=== PATIENT | male | born 1965 | race Hispanic/Latino ===

== ENCOUNTER 2018-09-12 08:13 | Observation (INO) | payer BC ==
[2018-09-12 08:27] VITALS: BMI 34.8
[2018-09-12 08:54] LABS: BASO % 0.6 % (0.0-2.0); EOS # 0.1 K/uL (0.0-0.7); EOS % 1.1 % (0.0-4.0); HEMOGLOBIN 16.6 g/dL (12.0-18.0); LYMPH # 1.3 K/uL (1.0-4.3); LYMPH % 19.3 % (20.0-40.0); MEAN CELL VOLUME 84.9 fL (80.0-94.0); MEAN CORPUSCULAR HEMOGLOBIN 29.5 pg (27.0-31.0); MEAN CORPUSCULAR HGB CONC 34.7 g/dL (33.0-37.0); MEAN PLATELET VOLUME 7.6 fL (7.2-11.7); MONO # 0.5 K/uL (0.0-0.8); MONO % 7.8 % (0.0-10.0); NEUT # 4.9 K/uL (1.8-7.0); NEUT % 71.2 % (50.0-75.0); RBC 5.63 Mil/uL (4.40-5.90); RED CELL DISTRIBUTION WIDTH 13.5 % (11.5-14.5); WHITE BLOOD COUNT 6.8 K/uL (4.8-10.8)
--- NOTE | 2018-09-12 09:12 | C.PDOC ---
History Of Present Illness 52 y/o male with a PMHx of hypercholesterolemia (on Lipitor), presents to the ED today complaining of substernal chest pain, non-radiating, that began this morning. He denies any associated SOB or cold sweats. Patient reports pain is pressure-like in nature. No associated headache, dizziness, nausea, vomiting, abdominal pain, or other complaints. Patient denies exertion. 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 As per EMS, they did an EKG in the field that showed no ST changes. Patient was given nitroglycerin x1 and 324 mg PO aspirin. On arrival patient states the pain is gone. No fevers or chills. Time Seen by Provider: 09/12/18 08:26 Chief Complaint (Nursing): Chest Pain History Per: Patient History/Exam Limitations: no limitations Onset/Duration Of Symptoms: Hrs Current Symptoms Are (Timing): Still Present Quality: Pressure Associated Symptoms: denies: Dyspnea Nitro Therapy Administered: 1, Per EMS, Complete Relief Additional History Per: Prior Records Past Medical History Reviewed: Historical Data, Nursing Documentation, Vital Signs Vital Signs: Last Vital Signs Temp 97.7 F 09/12/18 08:15 Pulse 92 H 09/12/18 08:20 Resp 16 09/12/18 08:15 BP 145/83 09/12/18 08:20 Pulse Ox 95 09/12/18 08:15 - Medical History PMH: Hypercholesterolemia - [facility] Procedures PRESSURE DRESSING APPLIC (02/10/13) Family History: States: No Known Family Hx - Social History Hx Alcohol Use: Yes Hx Substance Use: No - Immunization History Hx Tetanus Toxoid Vaccination: No Hx Influenza Vaccination: Yes Hx Pneumococcal Vaccination: No Review Of Systems Except As Marked, All Systems Reviewed And Found Negative. Constitutional: Negative for: Fever, Chills, Sweats Eyes: Negative for: Vision Change Cardiovascular: Positive for: Chest Pain. Negative for: Light Headedness Respiratory: Negative for: Cough, Shortness of Breath, SOB with Excertion Gastrointestinal: Negative for: Nausea, Vomiting, Abdominal Pain Musculoskeletal: Negative for: Back Pain Skin: Negative for: Rash, Lesions Neurological: Negative for: Weakness, Numbness, Headache, Dizziness Physical Exam - Physical Exam Appears: Non-toxic, No Acute Distress Skin: Warm, Dry, Other (Appears flushed) Head: Atraumatic, Normacephalic Eye(s): bilateral: PERRL, EOMI, Other (mild conjunctival injection) Oral Mucosa: Moist Neck: Normal ROM Chest: Symmetrical Cardiovascular: Rhythm Regular, No Murmur Respiratory: Normal Breath Sounds, No Rales, No Rhonchi, No Wheezing Gastrointestinal/Abdominal: Soft (and obese), No Tenderness, No Guarding, No Rebound Extremity: Normal ROM, No Deformity, Swelling (+1 pitting edema to the lower extremities) Pulses: Left Radial: Normal, Right Radial: Normal Neurological/Psych: Oriented x3, Normal Speech, Normal Cranial Nerves ED Course And Treatment - Laboratory Results Result Diagrams: 09/12/18 08:45 09/12/18 08:45 ECG: Interpreted By Me, Viewed By Me ECG Rhythm: Sinus Rhythm Interpretation Of ECG: no ST elevations or depressions Rate From EC O2 Sat by Pulse Oximetry: 95 (NC) Pulse Ox Interpretation: Normal - Other Rad CXR X-Ray: Read By Radiologist Interpretation: Accession No. : [id number]. Patient Name / ID : ALPHONSO MOBLEY / [id number]. Exam Date : 09/12/2018 08:31:26 ( Approved ). Study Comment : Sex / Age : M / 52Y. Creator : kumar altman. Dictator : Chad Gonzales MD. Corporate Officer : Front Desk Clerk : Chad Gonzales MD. Approver2 : Report Date : 09/12/2018 08:48:11. My Comment : . Date of service: 09/12/2018. HISTORY: r/o infiltrates. COMPARISON: No prior. TECHNIQUE: Chest PA and lateral. FINDINGS: LUNGS: No active pulmonary disease. PLEURA: No significant pleural effusion identified. No pneumothorax apparent. CARDIOVASCULAR: No aortic atherosclerotic calcification present. Normal cardiac size. OSSEOUS STRUCTURES: No significant abnormalities. VISUALIZED UPPER ABDOMEN: Normal. OTHER FINDINGS: None. IMPRESSION: No active disease. Medical Decision Making Medical Decision Making: Impression: Chest Pain Differential diagnosis includes but is not limited to: Gastritis vs NSTEMI Repeat EKG here shows no acute ST changes. Plan: - Repeat EKG - Labs with cardiac enzymes - Chest x-ray CXR shows no acute disease. 9:30 Patient's repeat EKG again shows no ST elevations. Troponin is negative. Will hospitalize under telemetry for chest pain work up, given clinical presentation. Spoke with Dr. Sevilla who accepts patient for admission. Requests cardiology consult with Dr. Gomez. Paged Dr. Gomez, notified of consult. Disposition Discussed With : Nasir Sevilla - Disposition Disposition: HOSPITALIZED Disposition Time: 09:34 Condition: GUARDED - Clinical Impression Clinical Impression: Chest pain - Scribe Statement The provider has reviewed the documentation as recorded by the Scribe Elva Fried Provider Attestation: All medical record entries made by the Karenibe were at my direction and personally dictated by me. I have reviewed the chart and agree that the record accurately reflects my personal performance of the history, physical exam, m edical decision making, and the department course for this patient. I have also personally directed, reviewed, and agree with the discharge instructions and disposition. Decision To Admit - Pt Status Changed To: Hospital Disposition Of: Observation - . Bed Request Type: Telemetry Admitting Physician: Ritu Pollard Patient Diagnosis: Chest pain
[2018-09-12 09:16] LABS: ALB/GLOB RATIO 1.9 (1.0-2.1); ALBUMIN 4.5 g/dL (3.5-5.0); ALT/SGPT 48 U/L (21-72); AST/SGOT 44 U/L (17-59); BLOOD UREA NITROGEN 19 mg/dL (9-20); CALCIUM 9.4 mg/dl (8.6-10.4); GFR NON-AFRICAN AMERICAN > 60
--- NOTE | 2018-09-12 10:23 | RAD ---
Date of service: 09/12/2018 HISTORY: r/o infiltrates COMPARISON: No prior. TECHNIQUE: Chest PA and lateral FINDINGS: LUNGS: No active pulmonary disease. PLEURA: No significant pleural effusion identified. No pneumothorax apparent. CARDIOVASCULAR: No aortic atherosclerotic calcification present. Normal cardiac size. OSSEOUS STRUCTURES: No significant abnormalities. VISUALIZED UPPER ABDOMEN: Normal. OTHER FINDINGS: None. IMPRESSION: No active disease.
[2018-09-12 11:13] LABS: BARBITURATES, UR NEGATIVE (NEGATIVE); BENZODIAZEPINES, UR NEGATIVE (NEGATIVE); OPIATES, UR NEGATIVE (NEGATIVE); PHENCYCLIDINE, UR NEGATIVE (NEGATIVE)
[2018-09-12 15:04] LABS: HDL CHOLESTEROL 35 mg/dL (30-70)
[2018-09-12 15:15] LABS: LDL CHOLESTEROL 81 mg/dL (0-129)
--- NOTE | 2018-09-12 15:59 | US ---
Date of service: 09/12/2018 HISTORY: r/o cholelithiasis COMPARISON: None available. TECHNIQUE: Sonographic evaluation of the right upper quadrant of the abdomen. FINDINGS: LIVER: Measures 17.4 cm in length. Echogenic liver may be seen in setting of hepatic parenchymal disease or fatty infiltration. No focal hepatic mass identified. The main portal vein appears patent with normal directional flow. No intrahepatic bile duct dilatation. GALLBLADDER: Contracted state limits evaluation. Cholelithiasis. Gallbladder wall thickening measuring approximately 4 mm. Negative sonographic Johnson's sign as assessed by the medical grade shoemaker. COMMON BILE DUCT: Measures 5 mm. PANCREAS: Not well-visualized. RIGHT KIDNEY: Measures approximately 11.9 x 6.3 x 5.7 cm. No obstructing calculus or hydronephrosis identified. AORTA: Limited visualization appears grossly unremarkable. IVC: Not well-visualized. OTHER FINDINGS: None . IMPRESSION: Echogenic liver may be seen in setting of hepatic parenchymal disease or fatty infiltration. Contracted state of gallbladder limits evaluation. Cholelithiasis. Gallbladder wall thickening measuring approximately 4 mm. Negative sonographic Johnson's sign as assessed by the medical grade shoemaker.
[2018-09-12 18:33] LABS: INR 1.3
[2018-09-12 22:25] LABS: CK-MB 0.69 ng/mL (0.0-3.38)
--- NOTE | 2018-09-12 23:24 | CP.PCM.CON ---
History of Present Illness - History of Present Illness History of Present Illness: 52 M with hx hyperlipdemia, HTN, Fhx admiited with ubstable angina scheduled for cath in am Past Patient History - Infectious Disease Hx of Infectious Diseases: None - Past Social History Smoking Status: Never Smoked - CARDIAC Hx Hypercholesterolemia: Yes - PSYCHIATRIC Hx Substance Use: No Meds Allergies/Adverse Reactions: Allergies Allergy/AdvReac Type Severity Reaction Status Date / Time No Known Allergies Allergy Verified 09/12/18 08:27 - Medications Medications: Current Medications Aspirin (Aspirin Chewable) 81 mg PO DAILY [facility] Last Admin: 09/12/18 18:03 Dose: 81 mg Enoxaparin Sodium (Lovenox) 40 mg SC DAILY [facility] Pneumococcal Polyvalent Vaccine (Pneumovax 23 Vaccine) 0.5 ml IM .ONCE ONE Stop: 09/13/18 10:01 Rosuvastatin Calcium (Crestor) 10 mg PO HS [facility] Last Admin: 09/12/18 21:26 Dose: 10 mg Results - Vital Signs Recent Vital Signs: Last Vital Signs Temp 98.2 F 09/12/18 15:50 Pulse 93 H 09/12/18 16:31 Resp 20 09/12/18 15:50 BP 129/84 09/12/18 15:50 Pulse Ox 94 L 09/12/18 15:50 - Labs Result Diagrams: 09/12/18 08:45 09/12/18 08:45 Labs: Laboratory Results - last 24 hr 09/12/18 09/12/18 09/12/18 08:45 08:45 10:45 WBC 6.8 RBC 5.63 Hgb 16.6 Hct 47.8 MCV 84.9 MCH 29.5 MCHC 34.7 RDW 13.5 Plt Count 210 MPV 7.6 Neut % (Auto) 71.2 Lymph % (Auto) 19.3 L [place] % (Auto) 7.8 Eos % (Auto) 1.1 Baso % (Auto) 0.6 Neut # (Auto) 4.9 Lymph # (Auto) 1.3 [place] # (Auto) 0.5 Eos # (Auto) 0.1 Baso # (Auto) 0.0 PT INR Sodium 139 Potassium 3.7 Chloride 102 Carbon Dioxide 26 Anion Gap 14 BUN 19 Creatinine 1.1 Est GFR ( Amer) > 60 Est GFR (Non-Af Amer) > 60 Random Glucose 148 H Calcium 9.4 Total Bilirubin 0.7 AST 44 ALT 48 Alkaline Phosphatase 107 Total Creatine Kinase CK-MB (Mass) Troponin I < 0.0120 Total Protein 6.9 Albumin 4.5 Globulin 2.4 Albumin/Globulin Ratio 1.9 Triglycerides Cholesterol LDL Cholesterol Direct HDL Cholesterol Urine Opiates Screen Negative Urine Methadone Screen Negative Ur Barbiturates Screen Negative Ur Phencyclidine Scrn Negative Ur Amphetamines Screen Negative U Benzodiazepines Scrn Negative U Oth Cocaine Metabols Negative U Cannabinoids Screen Negative 09/12/18 09/12/18 09/12/18 14:46 18:10 21:52 WBC RBC Hgb Hct MCV MCH MCHC RDW Plt Count MPV Neut % (Auto) Lymph % (Auto) [place] % (Auto) Eos % (Auto) Baso % (Auto) Neut # (Auto) Lymph # (Auto) [place] # (Auto) Eos # (Auto) Baso # (Auto) PT 14.0 H INR 1.3 Sodium Potassium Chloride Carbon Dioxide Anion Gap BUN Creatinine Est GFR ( Amer) Est GFR (Non-Af Amer) Random Glucose Calcium Total Bilirubin AST ALT Alkaline Phosphatase Total Creatine Kinase 79 CK-MB (Mass) 0.69 Troponin I < 0.0120 < 0.0120 Total Protein Albumin Globulin Albumin/Globulin Ratio Triglycerides 162 H Cholesterol 134 LDL Cholesterol Direct 81 HDL Cholesterol 35 Urine Opiates Screen Urine Methadone Screen Ur Barbiturates Screen Ur Phencyclidine Scrn Ur Amphetamines Screen U Benzodiazepines Scrn U Oth Cocaine Metabols U Cannabinoids Screen
--- NOTE | 2018-09-13 02:27 | HP ---
HISTORY OF PRESENT ILLNESS: This is a 52-year-old male with no significant past medical history except for hypercholesterolemia, presented to emergency room with pressure-like lower sternal chest pain while he was sitting in the car after eating a tuna sandwich on the day of admission. The patient drove himself to an ambulance and was brought by paramedics. The patient was given nitroglycerin and chewable aspirin, and he was chest pain free by the time he arrived to the emergency room. EKG did not show any acute ischemic changes, and initial troponin was negative. The patient admits that he has two brothers with strong coronary artery disease history, status post CABG at the age of during her 50s. Other review of system is positive for shortness of breath during the time the patient had chest pain. ALLERGIES: NO KNOWN ALLERGIES. MEDICATIONS: Atorvastatin 20 mg once a day. SOCIAL HISTORY: Denied smoking, EtOH or substance abuse. FAMILY HISTORY: As above. PAST MEDICAL HISTORY: Hypercholesterolemia. The patient stated that he had a stress test done and a regular checkup about 6 months ago, and he was told that it was normal. PHYSICAL EXAMINATION: GENERAL: The patient is in bed without any cardiopulmonary distress. VITAL SIGNS: Blood pressure 105/63, temperature 97.7, respiratory rate 18, and pulse 86. HEENT: Pupils are equal and reactive to light. Normal-appearing mucosa of the conjunctivae, oropharynx and nasal membrane mucosa. NECK: Supple. No JVD. No carotid bruit. No lymph node. No thyromegaly. CHEST AND LUNGS: Bilateral symmetrical expansion. Good air exchange. No rales. No rhonchi. CARDIOVASCULAR SYSTEM: PMI not localized. S1 and S2. No additional sounds. ABDOMEN: Normoactive bowel sounds. No tenderness. No organomegaly. No masses. EXTREMITIES: No cyanosis, no clubbing, no edema. CENTRAL NERVOUS SYSTEM: Alert, awake, oriented x3. No neurological deficit could be appreciated. ASSESSMENT: 1. Chest pain, rule out acute coronary syndrome. 2. Hypercholesterolemia. PLAN: Continue cardiac enzymes every 8 hours. Serial EKGs. Continue aspirin and statin. Cardiology consult. Echocardiogram. Ritu Pollard MD [facility] # [id number]
[2018-09-13 06:51] VITALS: RESP 20
[2018-09-13] MEDS ORDERED: Midazolam 2 MG/2 ML VIAL ONE (07:13)
[2018-09-13] MEDS ORDERED: Verapamil 2 ML ONE (07:13)
[2018-09-13] MEDS ORDERED: Lidocaine 2% MPF (5 ml) Inj ONE (07:15)
[2018-09-13] MEDS ORDERED: Nitroglycerin 50mg in D5W 50 MG/250 ML BOTTLE IV ONE (07:15)
[2018-09-13] MEDS ORDERED: Iohexol 350mg/ml 100 ML ONE (07:18)
[2018-09-13] MEDS ORDERED: Iodixanol 320 MG/ML 200 ML BOTTLE IV ONE (07:37)
[2018-09-13] MEDS ORDERED: Sodium Chloride 0.9% 1,000 ML IV SCH ×2 (08:10→08:30)
--- NOTE | 2018-09-13 08:16 | CP.PCM.PN ---
Subjective - Date & Time of Evaluation Date of Evaluation: 09/13/18 Time of Evaluation: 08:14 - Subjective Subjective: Patient s/p Cardiac cath Normal Coronaries Normal EF Medical management F/U cardiology in 1-2 weeks for post procedure check Cardiac point of view cleared for discharge after 12 noon today Objective - Vital Signs/Intake and Output Vital Signs (last 24 hours): Temp Pulse Resp BP Pulse Ox 97.7 F 60 20 117/67 98 09/13/18 06:50 09/13/18 06:50 09/13/18 06:50 09/13/18 06:50 09/13/18 06:50 - Medications Medications: Current Medications Enoxaparin Sodium (Lovenox) 40 mg SC DAILY [facility] Pneumococcal Polyvalent Vaccine (Pneumovax 23 Vaccine) 0.5 ml IM .ONCE ONE Stop: 09/13/18 10:01 Rosuvastatin Calcium (Crestor) 10 mg PO HS [facility] Last Admin: 09/12/18 21:26 Dose: 10 mg - Labs Labs: 09/12/18 08:45 09/12/18 08:45 PT 14.0 SECONDS (9.7-12.2) H 09/12/18 18:10 INR 1.3 09/12/18 18:10
[2018-09-13] MEDS ORDERED: Pneumococcal 23-Valent Vaccine IM ONE (10:00)
[2018-09-13 10:33] VITALS: O2SAT 95
[2018-09-13] MEDS: Enoxaparin 40 mg Syringe SC SCH ×2 (10:47→10:50)
[2018-09-13 11:45] LABS: BASO # 0.1 K/uL (0.0-0.2); BASO % 0.8 % (0.0-2.0); EOS # 0.1 K/uL (0.0-0.7); EOS % 2.1 % (0.0-4.0); HEMOGLOBIN 16.7 g/dL (12.0-18.0); LYMPH # 1.8 K/uL (1.0-4.3); LYMPH % 25.7 % (20.0-40.0); MEAN CELL VOLUME 86.1 fL (80.0-94.0); MEAN CORPUSCULAR HEMOGLOBIN 29.7 pg (27.0-31.0); MEAN CORPUSCULAR HGB CONC 34.5 g/dL (33.0-37.0); MONO # 0.6 K/uL (0.0-0.8); MONO % 8.1 % (0.0-10.0); NEUT # 4.4 K/uL (1.8-7.0); NEUT % 63.3 % (50.0-75.0); NRBC % 0.6 % (0.0-2.0); RBC 5.63 Mil/uL (4.40-5.90); RED CELL DISTRIBUTION WIDTH 13.6 % (11.5-14.5); WHITE BLOOD COUNT 6.9 K/uL (4.8-10.8)
[2018-09-13 11:59] LABS: ALB/GLOB RATIO 1.9 (1.0-2.1); ALBUMIN 4.5 g/dL (3.5-5.0); ALT/SGPT 34 U/L (21-72); AST/SGOT 38 U/L (17-59); BLOOD UREA NITROGEN 18 mg/dL (9-20); CALCIUM 9.1 mg/dl (8.6-10.4); GFR NON-AFRICAN AMERICAN > 60
--- NOTE | 2018-09-13 12:14 | CP.PCM.CON ---
<Clint Nunez - Last Filed: 09/13/18 14:47> History of Present Illness - History of Present Illness History of Present Illness: Consult Note for Dr. Abad HPI: Patient is a 52 year old male who presented for midsternal chest pain that started after he ate a tuna sandwich yesterday morning. He describes the pain as sharp, severe, 10/10 non-radiating that started suddenly and lasted about 15 minutes. He denies prior episodes of similar pain. He states that he has noticed that he has more frequent episodes of heartburn than before. He denies nausea, vomiting, diarrhea. He admits to constipation, has been using Metamucil more frequently. He recently went to a physician Dr. Farah in [place] who banded hemorrhoids last week. He is unsure if he had a bowel movement since his admission here. Surgery consulted after abdominal US revealed cholelithiasis. He currently denies any abdominal pain, states he has not had any recurrence of pain since his pain resolved yesterday. PMH: hyperlipidemia, seasonal allergies PSH: testicular surgery for epididymitis Home meds: Lipitor 20mg PO, Prevacid PRN, Claritin PRN for seasonal allergies Social hx: denies history of tobacco use, moderate alcohol use, denies drug use. Works as a policeman. Allergies: NKDA Review of Systems - Constitutional Constitutional: absent: Chills, Fever - EENT Nose/Mouth/Throat: absent: Dysphagia, Sore Throat - Cardiovascular Cardiovascular: Chest Pain. absent: Dyspnea - Respiratory Respiratory: absent: Cough, Dyspnea - Gastrointestinal Gastrointestinal: absent: Abdominal Pain, Diarrhea, Nausea, Vomiting - Genitourinary Genitourinary: absent: Dysuria - Musculoskeletal Musculoskeletal: absent: Back Pain - Psychiatric Psychiatric: absent: Anxiety, Depression Past Patient History - Infectious Disease Hx of Infectious Diseases: None - Past Social History Smoking Status: Never Smoked - CARDIAC Hx Hypercholesterolemia: Yes - PSYCHIATRIC Hx Substance Use: No Meds Allergies/Adverse Reactions: Allergies Allergy/AdvReac Type Severity Reaction Status Date / Time No Known Allergies Allergy Verified 09/12/18 08:27 - Medications Medications: Current Medications Enoxaparin Sodium (Lovenox) 40 mg SC DAILY [facility] Last Admin: 09/13/18 10:50 Dose: Not Given Sodium Chloride (Sodium Chloride 0.9%) 1,000 mls @ 80 mls/hr IV [id number] Stop: 09/13/18 12:11 Rosuvastatin Calcium (Crestor) 10 mg PO [facility] Last Admin: 09/12/18 21:26 Dose: 10 mg Physical Exam - Constitutional Appears: Well, No Acute Distress - Head Exam Head Exam: ATRAUMATIC, NORMOCEPHALIC - Eye Exam Eye Exam: EOMI, PERRL - ENT Exam ENT Exam: Mucous Membranes Moist - Neck Exam Neck exam: Positive for: Full Rom - Respiratory Exam Respiratory Exam: NORMAL BREATHING PATTERN - Cardiovascular Exam Cardiovascular Exam: REGULAR RHYTHM, +S1, +S2 - GI/Abdominal Exam GI & Abdominal Exam: Normal Bowel Sounds, Soft. absent: Tenderness - Extremities Exam Extremities exam: Positive for: pedal pulses present. Negative for: calf tenderness, pedal edema - Neurological Exam Neurological exam: Alert, Oriented x3 - Psychiatric Exam Psychiatric exam: Normal Affect, Normal Mood - Skin Skin Exam: Dry, Intact, Warm Results - Vital Signs Recent Vital Signs: Last Vital Signs Temp 98.0 F 09/13/18 10:32 Pulse 78 09/13/18 10:45 Resp 20 09/13/18 10:32 BP 135/87 09/13/18 10:32 Pulse Ox 95 09/13/18 10:32 - Labs Result Diagrams: 09/13/18 11:32 09/13/18 11:32 Labs: Laboratory Results - last 24 hr 09/12/18 09/12/18 09/12/18 14:46 18:10 21:52 WBC RBC Hgb Hct MCV MCH MCHC RDW Plt Count MPV Neut % (Auto) Lymph % (Auto) [place] % (Auto) Eos % (Auto) Baso % (Auto) Neut # (Auto) Lymph # (Auto) [place] # (Auto) Eos # (Auto) Baso # (Auto) PT 14.0 H INR 1.3 Sodium Potassium Chloride Carbon Dioxide Anion Gap BUN Creatinine Est GFR ( Amer) Est GFR (Non-Af Amer) Random Glucose Calcium Total Bilirubin AST ALT Alkaline Phosphatase Total Creatine Kinase 79 CK-MB (Mass) 0.69 Troponin I < 0.0120 < 0.0120 Total Protein Albumin Globulin Albumin/Globulin Ratio Triglycerides 162 H Cholesterol 134 LDL Cholesterol Direct 81 HDL Cholesterol 35 09/13/18 09/13/18 11:32 11:32 WBC 6.9 RBC 5.63 Hgb 16.7 Hct 48.5 MCV 86.1 MCH 29.7 MCHC 34.5 RDW 13.6 Plt Count 219 MPV 8.0 Neut % (Auto) 63.3 Lymph % (Auto) 25.7 [place] % (Auto) 8.1 Eos % (Auto) 2.1 Baso % (Auto) 0.8 Neut # (Auto) 4.4 Lymph # (Auto) 1.8 [place] # (Auto) 0.6 Eos # (Auto) 0.1 Baso # (Auto) 0.1 PT INR Sodium 138 Potassium 3.8 Chloride 102 Carbon Dioxide 28 Anion Gap 12 BUN 18 Creatinine 0.9 Est GFR ( Amer) > 60 Est GFR (Non-Af Amer) > 60 Random Glucose 103 D Calcium 9.1 Total Bilirubin 1.4 H AST 38 ALT 34 Alkaline Phosphatase 87 Total Creatine Kinase CK-MB (Mass) Troponin I Total Protein 6.8 Albumin 4.5 Globulin 2.3 Albumin/Globulin Ratio 1.9 Triglycerides Cholesterol LDL Cholesterol Direct HDL Cholesterol Assessment & Plan - Assessment and Plan (Free Text) Assessment: 52 year old male with history of hyperlipidemia who presents for chest pain, abdominal ultrasound revealed cholelithiasis. Plan: -Abdomen US: contracted state of gallbladder. cholelithiasis. GB wall thickening measuring 4mm. Negative sonographic Johnson's sign -Keep NPO for HIDA scan -Follow up HIDA scan -Patient to follow up with Dr. Abad as outpatient for elective cholecystectomy as outpatient after patient has EGD. Case discussed with Dr. Jenniffer Nunez, PGY1 <Angel Abad B - Last Filed: 09/17/18 18:30> Results - Vital Signs Recent Vital Signs: Last Vital Signs Temp 97.7 F 09/13/18 17:10 Pulse 68 09/13/18 17:10 Resp 20 09/13/18 17:10 BP 131/88 09/13/18 17:10 Pulse Ox 95 09/13/18 17:10 - Labs Result Diagrams: 09/13/18 11:32 09/13/18 11:32 Attending/Attestation - Attestation I have personally seen and examined this patient.: Yes I have fully participated in the care of the patient.: Yes I have reviewed all pertinent clinical information: Yes Notes (Text): Pt was seen and examined at bedside Agree with above note and assessment Pt with Gallstone and Upper abdominal Pain Abdomen: Soft, Non tender, ND Labs and Radiology reviewed Ass: Cholelithiasis, Esophagitis, GERD Plan : HIDA scan Pt can be DC home if HIDA is negative Lap Cholecystectomy as out pt c.w current mx Plan d.w pt and PMD in detail Risk and benefit explained in detail.
--- NOTE | 2018-09-13 17:01 | NM ---
Date of service: 09/13/2018 PROCEDURE: Nuclear Medicine Hepatobiliary Scan HISTORY: cholecystitis COMPARISON: September 12, 2018. Abdominal ultrasound. TECHNIQUE: 6.3 mCi of technetium 99m Mebrofenin was administered intravenously. Planar images of the abdomen were obtained at 5 min intervals to 60 mins. Delayed images were also obtained. FINDINGS: LIVER: Timely and homogenous uptake. COMMON BILE DUCT: identified at 10 mins. GALLBLADDER: identified at 15 mins. SMALL BOWEL: Identified at 75 mins. IMPRESSION: Normal Hepatobiliary Scan. The cystic duct is patent.
[2018-09-13 17:10] VITALS: BP 131/88; PULSE 68; TEMP 97.7
[2018-09-13] MEDS ORDERED: Docusate-Senna 50 mg-8.6 mg Tab PO SCH (18:00)
--- NOTE | 2018-09-13 19:02 | PN ---
DATE: 09/13/2018 SUBJECTIVE: The patient was seen today 09/13/2018. He is not having chest pain. The patient is status post cardiac catheterization that did not show any abnormality, that it showed normal coronary arteries. PHYSICAL EXAMINATION: VITAL SIGNS: Blood pressure 135/87, temperature 98, respiratory rate 20, and pulse 70. HEENT: Pupils equal, reactive to light. Normal-appearing mucosa of the conjunctivae, oropharynx and nasal membrane mucosa. NECK: Supple. No JVD. No carotid bruit. No lymph node. No thyromegaly. CHEST AND LUNGS: Bilateral symmetrical expansion. Good air exchange. No rales, no rhonchi. CARDIOVASCULAR: PMI not localized. S1, S2. No additional sounds. ABDOMEN: Normoactive bowel sounds. No tenderness. No organomegaly. No masses. EXTREMITIES: No cyanosis, no clubbing, no edema. CENTRAL NERVOUS SYSTEM: Alert, awake, oriented x3. No neurological deficit could be appreciated. LABORATORY DATA: Abdominal ultrasound showed contracted gallbladder with thickened wall and gallstones. ASSESSMENT: Chest pain, myocardial infarction ruled out, and the patient has normal coronary arteries. Differential diagnosis include biliary colic. PLAN: Discuss with surgery, Dr. Abad and we will do HIDA scan, and based on the results, we will decide further management. Ritu Pollard MD
--- NOTE | 2018-09-13 19:09 | CARD ---
APPROVED REPORT Date of service: 09/13/2018 EXAM: Two-dimensional and M-mode echocardiogram with Doppler and color Doppler. INDICATION Chest Pain RISK FACTORS Hypertension Hyperlipidemia 2D DIMENSIONS IVSd0.9 (0.7-1.1cm)LVDd5.1 (3.9-5.9cm) PWd1.0 (0.7-1.1cm)LA Afarjs38 (18-58mL) LVDs3.3 (2.5-4.0cm)FS (%) 36.1 % LVEF (%)65.4 (>50%)LVEF (Gordon's)72.66 % IVC0.00 cm M-Mode DIMENSIONS RVDd3.36 (2.1-3.2cm)Left Atrium (MM)3.90 (2.5-4.0cm) IVSd1.02 (0.7-1.1cm)Aortic Root3.42 (2.2-3.7cm) LVDd4.78 (4.0-5.6cm)Aortic Cusp Exc.2.48 (1.5-2.0cm) PWd0.97 (0.7-1.1cm)FS (%) 32 % LVDs3.27 (2.0-3.8cm)LVEF (%)62 (>50%) Mitral Valve MV E Nwuofiry05.2cm/sMV A Ryqgyban47.3cm/sE/A ratio0.8 TDI Lateral E' Peak V6.80cm/sMedial E' Peak V5.13cm/sE/Lateral E'8.7 E/Medial E'11.5 Tricuspid Valve TR Peak Rnsrbuwl422iq/sTR Peak Gr.16llTwFDJQ50kbLl LEFT VENTRICLE The left ventricle is normal size. There is normal left ventricular wall thickness. Left ventricle systolic function is normal. The Ejection Fraction is 60-65%. There is normal LV segmental wall motion. The left ventricular diastolic function is normal. ATRIA The left atrium size is normal. The right atrium size is normal. The interatrial septum is intact with no evidence for an atrial septal defect. AORTIC VALVE The aortic valve is normal in structure. No aortic regurgitation is present. There is no aortic valvular stenosis. There is no aortic valvular vegetation. MITRAL VALVE The mitral valve is normal in structure. There is no evidence of mitral valve prolapse. There is no mitral valve stenosis. There is no mitral valve regurgitation noted. TRICUSPID VALVE The tricuspid valve is normal in structure. There is mild tricuspid regurgitation. Right ventricular systolic pressure is estimated at less than 30 mmHg. There is no pulmonary hypertension. PULMONIC VALVE The pulmonic valve is not well visualized. There is no pulmonic valvular regurgitation. GREAT VESSELS The aortic root is normal in size. PERICARDIAL EFFUSION There is no significant pericardial effusion. <Conclusion> Left ventricle systolic function is normal. The Ejection Fraction is 60-65%. No aortic regurgitation is present. There is no mitral valve regurgitation noted. There is mild tricuspid regurgitation. There is no pulmonary hypertension. There is no pulmonic valvular regurgitation.
--- NOTE | 2018-09-14 06:43 | CARD ---
APPROVED REPORT Date of service: 09/12/2018 EKG Measurement Heart [id number] <Conclusion> Sinus rhythm with premature atrial complexes Minimal voltage criteria for LVH, may be normal variant Borderline ECG
--- NOTE | 2018-09-14 06:44 | CARD ---
APPROVED REPORT Date of service: 09/12/2018 EKG Measurement Heart [id number] <Conclusion> Normal sinus rhythm Normal ECG
--- NOTE | 2018-09-15 01:58 | DS ---
REASON FOR ADMISSION: This is a 52-year-old white male with history of hypercholesterolemia, was admitted because of sudden onset of lower chest pain. COURSE OF HOSPITALIZATION: The patient was admitted to telemetry floor and myocardial infarction was ruled out by negative cardiac enzymes. The patient had a cardiology consult done by Dr. Gomez and the patient underwent cardiac catheterization that showed normal coronary arteries. The patient also had an abdominal ultrasound that showed cholelithiasis and contracted gallbladder. HIDA scan was done that reported as normal hepatobiliary scan and patent cystic duct. The patient was discharged home, to follow with Surgery and to continue his cholesterol medications. Follow his primary care physician and Surgery. Ritu Pollard MD
--- NOTE | 2018-09-17 19:49 | CARDCATH ---
PROCEDURE DATE: 09/13/2018 PROCEDURES: 1. Left heart catheterization. 2. Coronary angiogram. CLINICAL INDICATIONS: 1. Unstable angina. 2. Hypertension. 3. Hyperlipidemia. REFERRING PHYSICIAN: Ritu Pollard MD PERFORMING PHYSICIAN: Tony Gomez MD DESCRIPTION OF PROCEDURE: After informed consent, the patient was prepped and draped in the usual sterile fashion. Lidocaine 2% was given in the right wrist for local anesthesia. Using micropuncture technique, a 6-Trinidadian sheath was introduced into the right radial artery. A JR4 6-Trinidadian diagnostic catheter was inserted into left ventricle. LVEDP was measured. Contrast was injected and LV angiogram was done. Then, the catheter was pulled back across the aortic valve. The gradient across the aortic valve was measured. Then, the same catheter engaged into right coronary artery. Contrast was injected and right coronary angiogram was done. Then, the catheter was exchanged to 6-Trinidadian [place] catheter. The catheter engaged into left main coronary artery. Contrast was injected and left coronary angiogram was done. The patient tolerated the procedure well. Postprocedure, Terumo radial band applied to the right wrist with excellent hemostasis. FINDINGS: 1. Left main coronary artery is patent. 2. LAD and diagonal branches are patent. 3. Left circumflex and obtuse marginal branches are patent. 4. Right coronary artery is dominant and patent. 5. LV ejection fraction is 70%. No wall motion abnormalities. EDP is 18. No gradient across the aortic valve. IMPRESSION: 1. Normal coronaries. 2. Normal left ventricular systolic function. PLAN: Recommend medical management. Tony Gomez MD
== END 2018-09-13 20:17 | disposition home or self-care (01) ==
LOC: C.ER 08:13 → C.9E 09:35 → C.5S 14:47
PROVIDERS: ADMIT Internal Medicine; ATTEND Internal Medicine
DX: K80.20 Calculus of gallbladder without cholecystitis without obstruction (principal); R07.9 Chest pain, unspecified; E78.5 Hyperlipidemia, unspecified; I10 Essential (primary) hypertension; R07.2 Precordial pain; E78.00 Pure hypercholesterolemia, unspecified; J30.2 Other seasonal allergic rhinitis; K59.00 Constipation, unspecified; K64.9 Unspecified hemorrhoids; Z82.49 Family history of ischemic heart disease and other diseases of the circulatory system; Z23 Encounter for immunization
CPT/HCPCS: 36415; 71046; 76705; 78226; 80053; 80061; 84484; 85025; 85610; 90732; 93005; 93306; 93458; 96360; 99152; 99153; 99285; A9537; C1769; C1887; G0009; G0378; G0480; J1644; J2001; J2250; J3010; J7030; Q9966; Q9967